=== PATIENT | female | born 1970 | race Caucasian/White ===

== ENCOUNTER 2021-07-15 08:07 | Outpatient (REF) | payer OTHER, SELFPAY ==
--- NOTE | ~2021-07-15 | MR_ITS ---
EXAMINATION: MR BRAIN WITHOUT AND WITH CONTRAST MR CERVICAL SPINE WITHOUT AND WITH CONTRAST CLINICAL INFORMATION: Abnormality of gait and mobility. Unspecified visual loss. COMPARISON: None TECHNIQUE: Multiplanar, multisequence imaging of the brain and cervical spine was performed before and after the intravenous administration of 9 mL of Gadavist. FINDINGS: BRAIN: No diffusion abnormalities are identified to suggest an acute infarct. The ventricles are normal in size. No mass effect or midline shift is seen. Minimal nonspecific subcentimeter foci of T2 hyperintense signal change noted in the cerebral white matter of both hemispheres. No extra-axial fluid collections are seen. The brainstem and cerebellum are normal. On postcontrast imaging, there is no abnormal parenchymal or leptomeningeal enhancement. The gradient refocused acquisition demonstrates no pathologic magnetic susceptibility artifact to indicate underlying acute or chronic blood products. The craniovertebral junction, marrow signal, and midline structures are normal. The major intracranial flow voids at the level of the [place] are preserved. The dural venous sinus flow voids are maintained. The mastoid air cells and paranasal sinuses are well aerated. CERVICAL SPINE: Vertebral Bodies And Paraspinal Soft Tissues: The marrow signal is mildly heterogeneous. Minimal endplate edematous changes present at various levels with infitepr-le-gsxqmy multilevel disc space narrowing. There are no compression fractures. Mild posterior subluxation is evident with endplate spurring at the C3-C4 and C4-C5 levels. There is a mild rightward curvature of the cervical spine. The paraspinal soft tissues appear normal. The vertebral artery flow-voids are normally maintained. The imaged lung apices are grossly clear. Cervicomedullary Junction And Visualized Posterior Fossa: The craniovertebral junction appears normal. No cord signal abnormality or syrinx is seen. No pathologic intradural enhancement identified. The epidural soft tissues are normal. Spinal Levels: C2-C3: No significant disc pathology. Patent central canal and foramina. C3-C4: Retrosubluxation and disc-osteophyte complex with afyritkb-gx-bmfsiu left foraminal narrowing. No central canal stenosis. C4-C5: Posterior subluxation and disc-osteophyte complex with severe left foraminal encroachment and moderate right foraminal narrowing. No central canal stenosis. C5-C6: Shallow disc bulge and endplate spurring without central canal stenosis. Severe left foraminal narrowing and moderate right foraminal encroachment. C6-C7: Disc-osteophyte complex without central canal stenosis. Mild left foraminal narrowing. C7-T1: Very mild disc bulge and small posterior annular fissure. No central canal stenosis or foraminal encroachment. MR/MR head/brain wo/w con IMPRESSION: BRAIN: Aside from minimal nonspecific white matter signal changes, no acute process. Otherwise, relatively normal MRI of the brain. No abnormal enhancement. CERVICAL SPINE: 1. Moderate multilevel disc space narrowing with shallow disc-osteophyte complexes. No cord signal abnormality or pathologic enhancement. 2. No central canal stenosis or focal disc protrusion. Xdiljgkc-um-lbtmud left foraminal narrowing at the C3-C4 level. Significant foraminal narrowing, worse on the left side at the C4-C5 and C5-C6 levels.
--- NOTE | ~2021-07-15 | MR_ITS ---
EXAMINATION: MR BRAIN WITHOUT AND WITH CONTRAST MR CERVICAL SPINE WITHOUT AND WITH CONTRAST CLINICAL INFORMATION: Abnormality of gait and mobility. Unspecified visual loss. COMPARISON: None TECHNIQUE: Multiplanar, multisequence imaging of the brain and cervical spine was performed before and after the intravenous administration of 9 mL of Gadavist. FINDINGS: BRAIN: No diffusion abnormalities are identified to suggest an acute infarct. The ventricles are normal in size. No mass effect or midline shift is seen. Minimal nonspecific subcentimeter foci of T2 hyperintense signal change noted in the cerebral white matter of both hemispheres. No extra-axial fluid collections are seen. The brainstem and cerebellum are normal. On postcontrast imaging, there is no abnormal parenchymal or leptomeningeal enhancement. The gradient refocused acquisition demonstrates no pathologic magnetic susceptibility artifact to indicate underlying acute or chronic blood products. The craniovertebral junction, marrow signal, and midline structures are normal. The major intracranial flow voids at the level of the [place] are preserved. The dural venous sinus flow voids are maintained. The mastoid air cells and paranasal sinuses are well aerated. CERVICAL SPINE: Vertebral Bodies And Paraspinal Soft Tissues: The marrow signal is mildly heterogeneous. Minimal endplate edematous changes present at various levels with fglobvrr-wi-tbtxdt multilevel disc space narrowing. There are no compression fractures. Mild posterior subluxation is evident with endplate spurring at the C3-C4 and C4-C5 levels. There is a mild rightward curvature of the cervical spine. The paraspinal soft tissues appear normal. The vertebral artery flow-voids are normally maintained. The imaged lung apices are grossly clear. Cervicomedullary Junction And Visualized Posterior Fossa: The craniovertebral junction appears normal. No cord signal abnormality or syrinx is seen. No pathologic intradural enhancement identified. The epidural soft tissues are normal. Spinal Levels: C2-C3: No significant disc pathology. Patent central canal and foramina. C3-C4: Retrosubluxation and disc-osteophyte complex with qapqgapo-ft-zbkaza left foraminal narrowing. No central canal stenosis. C4-C5: Posterior subluxation and disc-osteophyte complex with severe left foraminal encroachment and moderate right foraminal narrowing. No central canal stenosis. C5-C6: Shallow disc bulge and endplate spurring without central canal stenosis. Severe left foraminal narrowing and moderate right foraminal encroachment. C6-C7: Disc-osteophyte complex without central canal stenosis. Mild left foraminal narrowing. C7-T1: Very mild disc bulge and small posterior annular fissure. No central canal stenosis or foraminal encroachment. MR/MR cervical spine wo/w con IMPRESSION: BRAIN: Aside from minimal nonspecific white matter signal changes, no acute process. Otherwise, relatively normal MRI of the brain. No abnormal enhancement. CERVICAL SPINE: 1. Moderate multilevel disc space narrowing with shallow disc-osteophyte complexes. No cord signal abnormality or pathologic enhancement. 2. No central canal stenosis or focal disc protrusion. Dqwxelkj-ii-fqklhe left foraminal narrowing at the C3-C4 level. Significant foraminal narrowing, worse on the left side at the C4-C5 and C5-C6 levels.
== END 2021-07-15 08:08 | disposition home or self-care (01) ==
LOC: HO.MRI 08:07
PROVIDERS: Visit Provider Nurse Practitioner Family
DX: R26.9 Unspecified abnormalities of gait and mobility (principal); R51.9 Headache, unspecified; H54.7 Unspecified visual loss
CPT/HCPCS: 70553; 72156; A9585

== ENCOUNTER → 2021-07-22 07:48 | Outpatient (BNVA) | payer OTHER, SELFPAY | PROVIDERS: PCP Internal Medicine; Visit Provider Nurse Practitioner Family | DX: Z13.89 Encounter for screening for other disorder (principal) ==

== ENCOUNTER 2023-12-24 11:27 | Outpatient (AMB) | payer OTHER, SELFPAY ==
[2023-12-24 11:38] VITALS: BP 130/64; PULSE 65; O2SAT 97; BMI 42.0
--- NOTE | 2023-12-24 11:38 | HO.NEPHOV_ITS ---
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 She had no erythema or discoloration. She did not have any shortness of breath. She denies any chest pain, palpitation or syncope. She does not have any proximal nocturnal dyspnea or orthopnea. She underwent echocardiogram and stress test. She was given diuretics which she is not taking now. She tries to maintain low-sodium diet. She has no froth or foam in the urine. She is not known to have any liver disease, diagnosed obstructive sleep apnea or renal disease. She is not known to have any proteinuria. 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 Her levothyroxine dosage has been recently adjusted. She is not a diabetic. She is not on any calcium channel patrick. 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 [facility] Medical History (Updated 12/24/23 @ 13:20 by Júnior Santoyo MD) Cellulitis of labia Hypothyroidism Kidney stone Thyroid nodule Primary insomnia Chronic bilateral low back pain without sciatica Anxiety Vitamin D deficiency Fatty liver Elevated HDL Chronic thoracic spine pain Spondylosis of cervical region without myelopathy or radiculopathy Panic disorder Asthma IBS (irritable bowel syndrome) Fibromyalgia Osteoarthritis of joint of toe of left foot Moderate episode of recurrent major depressive disorder PTSD (post-traumatic stress disorder) Anemia Vaginal dryness Surgical History (Updated 12/24/23 @ 11:45 by Sona Hernandez MA) H/O section H/O tubal ligation History of carpal tunnel surgery History of cholecystectomy H/O: hysterectomy Family History Father HTN (hypertension) Kidney disease High cholesterol Daughter Sleep apnea Son Sleep apnea Mother Arthritis Sister Hypothyroid Schizophrenia Alcoholism Social History (Updated 12/24/23 @ 11:45 by Sona Hernandez MA) Alcohol intake: never Patient Tobacco Use Status: Never used Tobacco Review of Systems Const All systems reviewed & are unremarkable except as noted in HPI and below Physical Exam Vital Signs: Last Vital Signs Pulse 65 12/24/23 11:38 BP 130/64 12/24/23 11:38 Pulse Ox 97 12/24/23 11:38 Oxygen Delivery Method Room Air 12/24/23 11:38 BMI result Body Mass Index 42.0 Const General: comfortable and no acute distress Orientation/consciousness: patient oriented x3 HEENT Head: Yes normocephalic Mouth: Normal oral and palatal mucosa present Eyes EOM: EOMs intact bilaterally Neck Neck: Yes supple Resp Auscultation: clear to auscultation bilaterally Cardio Jugular venous distension: no JVD Rate: regular rate GI Palpation (GI): Soft to palpation Auscultation: normal bowel sounds Skin General skin exam: no rashes or lesions noted Neuro General: patient oriented x3 and moves all extremities Extrem General: Yes no pedal edema Results Reviewed Nephrology Results: No Data to Display Assessment & Plan Assessment & Plan (1) Edema: Code(s): R60.9 - Edema, unspecified Category: Medical Qualifiers: Edema type: unspecified Qualified Code(s): R60.9 - Edema, unspecified Plan Jenelle is not known to have any renal disease, liver disease or history of heart failure. Her echocardiogram showed normal right and left ventricular systolic function. She has no history of valvular abnormalities. She has no history of trauma proteinuria. Clinical examination today did not show any edema. I asked her not to take any diuretics unnecessarily. She does not take excessive nonsteroidal anti-inflammatories. She needs to cut back sodium in the diet and will benefit from weight loss. She also will benefit from a sleep study. I have ordered renal functions, urine protein creatinine ratio, liver functions including a serum albumin. If all these come back normal, then we need to consider whether some of her medications are contributing to the way she feels even though clinical examination is not supportive. Answered all questions. Follow-up appointment given. Orders: Orders Electrolytes Today R60.9 - Edema, unspecified Creatinine Today R60.9 - Edema, unspecified Blood Urea Nitrogen Today R60.9 - Edema, unspecified Alanine Aminotransferase Today R60.9 - Edema, unspecified Aspartate Amino Transferase Today R60.9 - Edema, unspecified Albumin Level Today R60.9 - Edema, unspecified Protein Creatinine Ratio, Ur Today R60.9 - Edema, unspecified Coding Level of Care Code New Pt Level 4 (96612) Diagnoses Edema, unspecified type R60.9 Edema type: unspecified
== END 2023-12-24 12:24 | disposition home or self-care (01) ==
PROVIDERS: PCP Internal Medicine; Visit Provider Internal Medicine Nephrology
DX: R60.9 Edema, unspecified (principal)
CPT/HCPCS: 99204

== ENCOUNTER → 2023-12-24 11:27 | Outpatient (BNVA) | payer OTHER, SELFPAY | PROVIDERS: PCP Internal Medicine; Visit Provider Internal Medicine Nephrology ==

== ENCOUNTER 2023-12-24 12:16 | Outpatient (REF) | payer OTHER, SELFPAY ==
[2023-12-24 13:55] LABS: Alanine Aminotransferase 21 U/L (0-31); Albumin Level 4.5 g/dL (3.5-5.0); Anion Gap 12 (12-20); Aspartate Amino Transferase 18 U/L (5-31); Blood Urea Nitrogen 11 mg/dL (9-16); Carbon Dioxide 28 mmol/L (22-29); Chloride 107 mmol/L (96-108); Estimated Glomerular Filt Rate > 60; Potassium 4.5 mmol/L (3.3-5.1); Sodium 142 mmol/L (135-145)
[2023-12-24 14:10] LABS: Creatinine Urine 78.96 mg/dL; Total Protein Urine Random < 7 mg/dL (<12)
== END 2023-12-24 12:17 | disposition home or self-care (01) ==
LOC: HO.HKASLDS 12:16
PROVIDERS: Visit Provider Internal Medicine Nephrology
DX: R60.9 Edema, unspecified (principal)
CPT/HCPCS: 36415; 80051; 82040; 82565; 82570; 84156; 84450; 84460; 84520; 99202

== ENCOUNTER 2024-02-02 15:52 | Outpatient (AMB) | payer OTHER, SELFPAY ==
--- NOTE | 2024-02-02 16:00 | HO.NEPHOV_ITS ---
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 She had no erythema or discoloration. She did not have any shortness of breath. She denies any chest pain, palpitation or syncope. She does not have any proximal nocturnal dyspnea or orthopnea. She underwent echocardiogram and stress test. She was given diuretics which she is not taking now. She tries to maintain low- sodium diet. She has no froth or foam in the urine. She is not known to have any liver disease, diagnosed obstructive sleep apnea or renal disease. She is not known to have any proteinuria. 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 Her levothyroxine dosage has been recently adjusted. She is not a diabetic. She is not on any calcium channel patrick. She recently had right low back pain and was found to have 2 mm right UV junction. Two days later she had TIA. She has been started on Aspirin. 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 [facility] Medical History (Updated 02/02/24 @ 16:14 by Júnior Santoyo MD) Cellulitis of labia Hypothyroidism Kidney stone Thyroid nodule Primary insomnia Chronic bilateral low back pain without sciatica Anxiety Vitamin D deficiency Fatty liver Elevated HDL Chronic thoracic spine pain Spondylosis of cervical region without myelopathy or radiculopathy Panic disorder Asthma IBS (irritable bowel syndrome) Fibromyalgia Osteoarthritis of joint of toe of left foot Moderate episode of recurrent major depressive disorder PTSD (post-traumatic stress disorder) Anemia Vaginal dryness Surgical History H/O section H/O tubal ligation History of carpal tunnel surgery History of cholecystectomy H/O: hysterectomy Family History Father HTN (hypertension) Kidney disease High cholesterol Daughter Sleep apnea Son Sleep apnea Mother Arthritis Sister Hypothyroid Schizophrenia Alcoholism Social History Alcohol intake: never Patient Tobacco Use Status: Never used Tobacco Review of Systems Const All systems reviewed & are unremarkable except as noted in HPI and below Physical Exam Const General: comfortable and no acute distress Orientation/consciousness: patient oriented x3 HEENT Head: Yes normocephalic Mouth: Normal oral and palatal mucosa present Eyes EOM: EOMs intact bilaterally Neck Neck: Yes supple Resp Auscultation: clear to auscultation bilaterally Cardio Jugular venous distension: no JVD Rate: regular rate GI Palpation (GI): Soft to palpation Auscultation: normal bowel sounds General: Yes no CVA tenderness Back/Spine/Pelvis Back: no CVA tenderness Skin General skin exam: no rashes or lesions noted Neuro General: patient oriented x3 and moves all extremities Results Reviewed Nephrology Results: Sodium 142 mmol/L (135-145) 12/24/23 Potassium 4.5 mmol/L (3.3-5.1) 12/24/23 Chloride 107 mmol/L (96-108) 12/24/23 Carbon Dioxide 28 mmol/L (22-29) 12/24/23 BUN 11 mg/dL (9-16) 12/24/23 Creatinine 0.70 mg/dL (0.5-1.4) 12/24/23 Urine Creatinine 78.96 mg/dL 12/24/23 Protein/Creatinin Ratio TNP 12/24/23 Assessment & Plan Assessment & Plan (1) Kidney stone: Code(s): N20.0 - Calculus of kidney Category: Medical Plan Jenelle is not known to have any renal disease, liver disease or history of heart failure. Her echocardiogram showed normal right and left ventricular systolic function. She has no history of valvular abnormalities. She has no history of proteinuria. Clinical examination today did not show any edema. I asked her not to take any diuretics unnecessarily. She does not take excessive nonsteroidal anti-inflammatories. She needs to cut back sodium in the diet and will benefit from weight loss. She also will benefit from a sleep study. Renal functions, urine protein creatinine ratio, liver functions including a serum albumin were normal. I ordered 24 hour urine for stone screen. I shall initiate her on HCTZ and or K citrate after the urine results.Answered all questions. Follow-up given Orders: Orders Sodium, 24Hr Urine Group 2 Months N20.0 - Calculus of kidney Calcium, 24 Hr Ur 2 Months N20.0 - Calculus of kidney Uric Acid, 24Hr Urine Group 2 Months N20.0 - Calculus of kidney Citric Acid 24hr Urine 2 Months N20.0 - Calculus of kidney Oxalate, 24 Hr 2 Months N20.0 - Calculus of kidney Uric Acid 2 Months N20.0 - Calculus of kidney Coding Level of Care Code Est Pt Level 4 (99170) Diagnoses Kidney stone N20.0
[2024-02-02 16:02] VITALS: BP 116/70; PULSE 69; O2SAT 95; BMI 42.0
== END 2024-02-02 16:24 | disposition home or self-care (01) ==
PROVIDERS: PCP Internal Medicine; Visit Provider Internal Medicine Nephrology
DX: N20.0 Calculus of kidney (principal)
CPT/HCPCS: 99214

== ENCOUNTER → 2024-02-02 15:52 | Outpatient (BNVA) | payer OTHER, SELFPAY | PROVIDERS: PCP Internal Medicine; Visit Provider Internal Medicine Nephrology | DX: N20.0 Calculus of kidney (principal); Z86.73 Personal history of transient ischemic attack (TIA), and cerebral infarction without residual deficits | CPT/HCPCS: 99212 ==

== ENCOUNTER 2024-05-24 15:51 | Outpatient (AMB) | payer OTHER, SELFPAY ==
--- NOTE | 2024-05-24 16:10 | HO.NEPHOV_ITS ---
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 She had no erythema or discoloration. She did not have any shortness of breath. She denies any chest pain, palpitation or syncope. She does not have any proximal nocturnal dyspnea or orthopnea. She underwent echocardiogram and stress test. She was given diuretics which she is not taking now. She tries to maintain low-sodium diet. She has no froth or foam in the urine. She is not known to have any liver disease, diagnosed obstructive sleep apnea or renal disease. She is not known to have any proteinuria. 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 Her levothyroxine dosage has been recently adjusted. She is not a diabetic. She is not on any calcium channel patrick. She recently had a 2 mm right UV junction. Two days later she had TIA. 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 [facility] Medical History (Updated 02/02/24 @ 16:14 by Júnior Santoyo MD) Cellulitis of labia Hypothyroidism Kidney stone Thyroid nodule Primary insomnia Chronic bilateral low back pain without sciatica Anxiety Vitamin D deficiency Fatty liver Elevated HDL Chronic thoracic spine pain Spondylosis of cervical region without myelopathy or radiculopathy Panic disorder Asthma IBS (irritable bowel syndrome) Fibromyalgia Osteoarthritis of joint of toe of left foot Moderate episode of recurrent major depressive disorder PTSD (post-traumatic stress disorder) Anemia Vaginal dryness Surgical History H/O section H/O tubal ligation History of carpal tunnel surgery History of cholecystectomy H/O: hysterectomy Family History Father HTN (hypertension) Kidney disease High cholesterol Daughter Sleep apnea Son Sleep apnea Mother Arthritis Sister Hypothyroid Schizophrenia Alcoholism Social History Alcohol intake: never Patient Tobacco Use Status: Never used Tobacco Review of Systems Const All systems reviewed & are unremarkable except as noted in HPI and below Physical Exam Vital Signs: Last Vital Signs Pulse 69 05/24/24 16:11 BP 120/70 05/24/24 16:11 Pulse Ox 95 05/24/24 16:11 Oxygen Delivery Method Room Air 05/24/24 16:11 BMI result Body Mass Index 39.5 Const General: comfortable and no acute distress Orientation/consciousness: patient oriented x3 HEENT Head: Yes normocephalic Mouth: Normal oral and palatal mucosa present Eyes EOM: EOMs intact bilaterally Neck Neck: Yes supple Resp Auscultation: clear to auscultation bilaterally Cardio Jugular venous distension: no JVD Rate: regular rate GI Palpation (GI): Soft to palpation Auscultation: normal bowel sounds General: Yes no CVA tenderness Back/Spine/Pelvis Back: no CVA tenderness Skin General skin exam: no rashes or lesions noted Neuro General: patient oriented x3 and moves all extremities Extrem General: Yes no pedal edema Results Reviewed Nephrology Results: Sodium 142 mmol/L (135-145) 12/24/23 Potassium 4.5 mmol/L (3.3-5.1) 12/24/23 Chloride 107 mmol/L (96-108) 12/24/23 Carbon Dioxide 28 mmol/L (22-29) 12/24/23 BUN 11 mg/dL (9-16) 12/24/23 Creatinine 0.70 mg/dL (0.5-1.4) 12/24/23 Urine Creatinine 78.96 mg/dL 12/24/23 Protein/Creatinin Ratio TNP 12/24/23 Assessment & Plan Assessment & Plan (1) Kidney stone: Code(s): N20.0 - Calculus of kidney Category: Medical Plan Jenelle is not known to have any renal disease, liver disease or history of heart failure. Her echocardiogram showed normal right and left ventricular systolic function. She has no history of valvular abnormalities. She has no history of proteinuria. Clinical examination today did not show any edema. I asked her not to take any diuretics unnecessarily. She does not take excessive nonsteroidal anti-inflammatories. She needs to cut back sodium in the diet and will benefit from weight loss. Renal functions, urine protein creatinine ratio, liver functions including a serum albumin were normal. Her 24 hour urine for stone screen is pending. She will need a renal USS In 6 months ( I shall arrange). I shall initiate her on HCTZ and or K citrate after the urine results.Answered all questions. Follow-up given Coding Level of Care Code Est Pt Level 4 (38775) Diagnoses Kidney stone N20.0
[2024-05-24 16:11] VITALS: BP 120/70; PULSE 69; O2SAT 95; BMI 39.5
--- OUTSIDE RECORDS SUMMARY | 2024-05-24 19:50 | XMS_ITS | Encounter Summary ---
Author Organization [facility] [place] [address] Care Team Providers Care Water Resource Specialist Name Role Phone Kevin Raymond MD Primary Care Provider [phone] Encounter Details Date Type Department Care Team (Late st Contact Info) Description 05/19/2024 Telephone Adult Medicine [address] [phone] Kaykay Starks, RN Social History Tobacco Use Types Packs/Day Years Used Date Smoking Tobacco: Former Smokeless Tobacco: Never Alcohol Use Standard Drinks/Week Comments Yes 0 (1 standard drink = 0.6 oz pur e alcohol) Comments Unknown Sex and Gender Information Value Date Recorded Sex Assigned at Not on file Legal Sex Female 4:15 AM EST Gender Identity Not on file Sexual Orientation Not on file documented as of this encounter Progress Notes * Kaykay Starsk RN - 05/19/2024 3:38 PM EST I left a message for the pt to call the office at and sent a my chart message. documented in this encounter Plan of Treatment Upcoming Encounters Date Type Department Care Team (Late st Contact Info) Description 06/08/2024 3:30 PM EDT Consult Nephrology [address], [place] [phone] Lonnie Mondragon MD [address] [facility] [address] [place] [address] 06/10/2024 4:40 PM EDT Office Visit Endocrinology [address] [phone] Radha Larson PA [address] [place] [address] documented as of this encounter Visit Diagnoses Not on filedocumented in this encounter Care Teams Water Resource Specialist Relationship Specialty Start Date End Date Kevin Raymond MD [address] [place] [id number] PCP - General Internal Medicine 02/02/20 documented as of this encounter
--- OUTSIDE RECORDS SUMMARY | 2024-05-24 19:50 | XMS_ITS | Clinical Summary ---
Author Organization [facility] [address] [facility] Address [address] [facility] [place] Phone Care Team Providers Care Corporate Event Planner Name Role Phone Kevin Raymond MD Primary Care Provider [phone] Allergies Active Allergy Reactions Criticality Noted Date Comments Hydromorphone Hcl Headache 10/17/2019 Medications conjugated estrogens (Premarin) vaginal cream Insert 0.5 g into the vagina. 022 Active fluticasone propionate (FLONASE) 50 mcg/actuation nasal spray Administer 2 sprays into each nostril 1 (one) time each day. 023 Active fluticasone-salm eterol (ADVAIR DISKUS) 250-50 mcg/dose diskus inhaler Inhale 1 puff by mouth 2 (two) times a day. 023 Active OLANZapine (ZyPREXA) 2.5 mg tablet Take 1 tablet (2.5 mg total) by mouth 1 (one) time each day. 023 Active ergocalciferol (VITAMIN D-2) 1,250 mcg (50,000 unit) capsule Take 1 capsule (50,000 Units total) by mouth 1 (one) time per week. 023 Active aspirin 81 mg EC tablet Take 1 tablet (81 mg total) by mouth 1 (one) time each day. 90 tablet 1 024 2024 Active Additional Information Patient taking differently:81 mg oralNightly, Reported on 02/25/2024 Ventolin HFA 90 mcg/actuation inhaler INHALE 2 PUFFS INTO THE LUNGS EVERY 4 HOURS NEEDED FOR COUGH OR WHEEZING. 54 each 1 024 Active gabapentin (NEURONTIN) 300 mg capsule Take 1 capsule (300 mg total) by mouth 2 (two) times a day. Active levothyroxine (SYNTHROID, LEVOTHROID) 100 mcg tablet TAKE 1 TABLET BY MOUTH EVERY DAY 90 tablet 024 Active rosuvastatin (CRESTOR) 5 mg tablet Take 1 tablet (5 mg total) by mouth 1 (one) time each day. 90 each 1 025 2024 Active DULoxetine (CYMBALTA) [address] capsule TAKE 1 CAPSULE BY MOUTH EVERY DAY 90 capsule 025 Active carisoprodoL (SOMA) 350 mg tabletIndication s:Spondylosis of cervical region without myelopathy or radiculopathy Take 1 tablet (350 mg total) by mouth 4 (four) times a day. Max Daily Amount: 1,400 mg 112 tablet 025 Active ALPRAZolam (XANAX) 0.5 mg tablet Take 1 tablet (0.5 mg total) by mouth 2 (two) times a day. Max Daily Amount: 1 mg 56 tablet 025 Active tirzepatide, weight loss, (Zepbound) 7.5 mg/0.5 mL injectionIndicat ions:Obesity (BMI 30-39.9) Inject 0.5 mL (7.5 mg total) under the skin every 7 (seven) days. 2 mL 1 025 Active predniSONE (DELTASONE) 20 mg tablet 3 tabs po x 3 days then 2 tabs po x 3 days then one tab po x 3 days 18 each 025 Active DULoxetine (CYMBALTA) [address] capsule Take 1 capsule (30 mg total) by mouth 1 (one) time each day. 023 2024 Discontinued ALPRAZolam (XANAX) 0.5 mg tablet Take 1 tablet (0.5 mg total) by mouth 2 (two) times a day. Max Daily Amount: 1 mg 56 tablet 025 2024 Discontinued(R eorder) carisoprodoL (SOMA) 350 mg tabletIndication s:Spondylosis of cervical region without myelopathy or radiculopathy Take 1 tablet (350 mg total) by mouth 4 (four) times a day. Max Daily Amount: 1,400 mg 112 tablet 025 2024 Discontinued(R eorder) tirzepatide, weight loss, (Zepbound) 5 mg/0.5 mL injectionIndicat ions:Obesity (BMI 30-39.9) Use 5 mg once weekly 2 mL 025 2024 Discontinued Active Problems Problem Noted Date Diagnosed Date Vaginal dryness 08/15/2021 Overview (05/08/2023): Last Assessment & Plan: Encouraged coconut oil for lubrication and positioning for comfort. Can consider vaginal E2 if not improved. 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 Elevated HDL 06/09/2018 Fatty liver 06/09/2018 Chronic thoracic spine pain 06/09/2018 Vitamin D deficiency 06/05/2018 Obesity (BMI 30-39.9) 05/28/2018 Chronic bilateral low back pain without sciatica 05/28/2018 Overview (05/08/2023): [facility] neuro 05/30/21 did not recommend surgery Anxiety 05/28/2018 Primary insomnia 05/28/2018 Thyroid nodule 05/28/2018 Kidney stone 07/01/2017 Overview (05/08/2023): 06/18/2017 US 3mm R sided kidney stone. Added automatically from request for surgery [id number]. Hypothyroidism 11/19/2014 Overview (05/08/2023): Angus's Disease. Cellulitis of labia 11/19/2014 Resolved Problems Problem Noted Date Diagnosed Date Resolved Date TIA (transient ischemic attack) 02/25/2024 02/26/2024 Encounters Date Type Department Care Team Description 05/19/2024 Telephone Adult Medicine [address] [phone] Kaykay Starks RN 05/16/2024 Telephone Adult [address] [phone] Ester Randhawa MA Prior Authorization (Carisoprodol 350mg) 04/21/2024 9:13 AM EST - 04/21/2024 11:59 PM EST Hospital Encounter [address] [phone] Right knee pain, unspecified chronicity; Leg cramp Discharge Disposition: Home or Self Care 04/08/2024 3:30 PM EST Office Visit Adult [address] [phone] Kevin Raymond MD Anxiety (Primary Dx); Hypothyroidism, unspecified type; Right knee pain, unspecified chronicity; Leg cramp; Fibromyalgia; History of transient ischemic attack (TIA); PTSD (post-traumatic stress disorder) 04/07/2024 Telephone Adult Medicine [address] [phone] Sofy Jerez MA Medication Problem 03/14/[address] [phone] Radha Larson PA PRIOR AUTHORIZATION 02/25/2024 11:20 AM EST - 02/26/2024 2:40 PM EST [facility] [address] [place] [phone] Kwaku Perez, Dallas Ortega MD Santoyo-Pachec o, Omar D, MD Rasul, Yar M, MD TIA (transient ischemic attack) (Primary Dx) Discharge Disposition: Home or Self Care 02/24/2024 Telephone Adult Medicine [address] [phone] Kevin Raymond MD Forms/questionnaires ([facility]) from Last 3 Months Immunizations Name Administration Dates Next Due Influenza Quadravalent, MDCK , 0.5ml, preservative free (Flucelvax) 6mo and older 12/12/2021 Influenza trivalent, with pr eservative (Fluzone; Afluria) 6mo and older 12/25/2018,01/01/2018 Pneumococcal polysaccharide 23 valent (Pneumovax 23) 2yo and older 06/15/2020 Tdap Tetanus diptheria acell ular pertussis (Boostrix; Adacel) 7yo and older 09/25/2021 Surgical History Surgery Date Site/Laterality Comments CHOLECYSTECTOMY PROCEDURE: HISTORICAL CHOLECYSTECTOMY TUBAL LIGATION PROCEDURE: HISTORICAL TUBAL LIGATION CARPAL TUNNEL RELEASE PROCEDURE: HISTORICAL CARPAL TUNNEL REL SECTION PROCEDURE: HISTORICAL DELIVERY TONSILLECTOMY PROCEDURE: HISTORICAL TONSILLECTOMY COLONOSCOPY 01/14/2021 PROCEDURE: HISTORICAL COLONOSCOPY; COMMENT: Dr. Hsieh -internal hemorrhoids, otherwise unremarkable. Repeat 5 years. ESOPHAGOGASTRODUODENOSCOPY 01/14/2021 PROCEDURE: NV EGD TRANSORAL BIOPSY SINGLE/MULTIPLE; COMMENT: Dr. Hsieh -antral gastritis, otherwise unremarkable. Gastric biopsy shows evidence of reactive gastropathy. No H. pylori infection. Duodenal biopsy negative for celiac disease. 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 HYSTERECTOMY 2008 PROCEDURE: HISTORICAL TOTAL HYSTERECTOMY WITH BSO; COMMENT: heavy bleeding, anemia, cysts APPENDECTOMY PROCEDURE: HISTORICAL APPENDECTOMY Medical History Medical History Date Comments Asthma 12/17/2018 DX:Asthma Cellulitis of labia 11/19/2014 DX:Celluliti s of labia Chronic bilateral low back p ain without sciatica 05/28/2018 DX:Chronic bilateral low homero k pain without sciatica; COMMENT: [facility] neuro 05/30/21 did not recommend surgery Chronic thoracic spine pain 06/09/2018 DX:C hronic thoracic spine pain Fibromyalgia 03/22/2020 DX:Fibromyalgia Obesity (BMI 30-39.9) 05/28/2018 DX:Obesity (BMI 30-39.9) Osteoarthritis of joint of t oe of left foot 09/25/2020 DX:Osteoarthritis of joint o f toe of left foot Panic disorder 11/24/2018 DX:Panic disorde r Primary insomnia 05/28/2018 DX:Primary inso mnia PTSD (post-traumatic stress disorder) 12/13/2020 DX:PTSD (post-traumatic stress disorder) Spondylosis of cervical max on without myelopathy or radiculopathy 06/22/2018 DX:Spondylosis of cervical region without myelopathy or radiculopathy; COMMENT: DDD mild to moderate loss of disc height throughout cervical spine, slight degenerative retrolisthesis of C4-5. Thyroid nodule 05/28/2018 DX:Thyroid nodul e Vitamin D deficiency 06/05/2018 DX:Vitamin D deficiency Hypothyroidism 11/19/2014 DX:Hypothyroidis m; COMMENT: Angus's Disease. Moderate episode of recurren t major depressive disorder (CMS/HCC) 12/13/2020 DX:Moderate episode of r ecurrent major depressive disorder (HCC) IBS (irritable bowel syndrome) 04/01/2019 D X:IBS (irritable bowel syndrome); COMMENT: w/ constipation, 04/03/2015 Family History Medical History Relation Name Comments Breast cancer Aunt 1 mat x 2 - 50's Breast cancer Aunt 2 mat - 60's Ovarian cancer Aunt 2 mat Prostate cancer Brother 1 Colon polyps Brother 2 8 polyps Prostate cancer Brother 2 Kidney cancer Daughter Heart attack Father Pancreatic cancer Father's side Arthritis Mother Colon cancer Uncle mat 60's Relation Name Status Comments Aunt 1 mat Alive Aunt 2 mat Brother 1 Alive prostate cancer Brother 2 Alive Daughter Alive Father (Age 69) mi cholest htn Father's side Alive Mother Alive Sister 1 Alive hypothyroid htn Sister 2 Alive hypothyroid Uncle mat Alive Social History Tobacco Use Types Packs/Day Years Used Date Smoking Tobacco: Former Smokeless Tobacco: Never Tobacco Cessation:Counseling Given: Not Answered Alcohol Use Standard Drinks/Week Comments Yes 0 (1 standard drink = 0.6 oz pur e alcohol) Comments Unknown Sex and Gender Information Value Date Recorded Sex Assigned at Not on file Legal Sex Female 4:15 AM EST Gender Identity Not on file Sexual Orientation Not on file Obstetrics History Last Filed Vital Signs Vital Sign Reading Time Taken Comments Blood Pressure 104/64 04/08/2024 3:23 PM EST Pulse 84 04/08/2024 3:23 PM EST Temperature 35.9 ??C (96.6 ??F) 04/08/2024 3:23 PM ES T Respiratory Rate 18 04/08/2024 3:23 PM EST Oxygen Saturation 97% 04/08/2024 3:23 PM EST Inhaled Oxygen Concentration - - Weight 105 kg (231 lb 8 oz) 04/08/2024 3:[address] Height 160 cm (5' 3 ) 04/08/2024 3:23 PM EST Body Mass Index 41.01 04/08/2024 3:23 PM EST Plan of Treatment Upcoming Encounters Date Type Department Care Team (Late st Contact Info) Description 06/08/2024 3:30 PM EDT Consult Nephrology - [address] [phone] Lonnie Mondragon MD [address] [facility] [address] [place] [phone] 06/10/2024 4:40 PM EDT Office Visit Endocrinology - [address] [phone] Radha Larson PA [address] [place], [place] Health Maintenance Due Date Last Done Comments Hepatitis B Vaccines (1 of 3 - 19+ 3-dose series) 1987 Zoster Vaccines (1 of 2) 2018 HIV Screening 04/23/2019 Social Influencers of Health Screening 04/23/2019 Pneumococcal Vaccine: 50+ Years (2 of 2 - PCV) 06/15/2021 06/15/2020 Pneumococcal Vaccine: Pediatrics (0 to 5 Years) and At-Risk Patients (6 to 64 Years) (2 of 2 - PCV) 06/15/2021 06/15/2020 COVID-19 Vaccine (3 - 2023- season) 2023 2020, 04/05/2020 Influenza Vaccine (#1) 2023 , 12/25/2018, 01/01/2018 Depression Screening 02/04/2024 02/03/2023 Breast Cancer Screening 07/08/2024 07/09/19 24, 04/25/2022, 01/12/2021, Additional history exists Colorectal Cancer Screening: Colonoscopy 01/14/2026 01/14/2021 Cholesterol Screening (Lipid Panel) 03/12/2028 03/12/2023 DTaP,Tdap,and Td Vaccines (2 - Td or Tdap) 09/26/2031 09/25/2021 Hepatitis C Screening Addressed 03/06/2022 Overri dden with the intention of not completing the topic HIB Vaccines Aged Out No longer eligi ble based on patient's age to complete this topic HPV Vaccines Aged Out No longer eligi ble based on patient's age to complete this topic Hepatitis A Vaccines Aged Out No long er eligible based on patient's age to complete this topic IPV Vaccines Aged Out No longer eligi ble based on patient's age to complete this topic MMR Vaccines Aged Out No longer eligi ble based on patient's age to complete this topic Meningococcal ACWY Vaccine Aged Out N o longer eligible based on patient's age to complete this topic Meningococcal B Vacine Aged Out No lo nger eligible based on patient's age to complete this topic RSV Immunization Patients Under 20 months Aged Out No longer eligible based on patient's age to complete this topic Varicella Vaccines Aged Out No longer eligible based on patient's age to complete this topic Procedures Procedure Name Priority Date/Time Associated Diagnosis Comments XR KNEE 4+ VIEWS RIGHT Routine 9:32 AM EST Right knee pain, unspecified chronicity Leg cramp BENZODIAZEPINE, QUANTITATIVE, URINE Routine 04/07/2024 11:25 AM EST Encounter for long-term (current) use of high-risk medication THC, URINE, CONFIRMATION Routine 04/07/2024 11:25 AM EST Encounter for long-term (current) use of high-risk medication DRUG ABUSE SCREEN EXPANDED WITH REFLEX CONFIRMATION, URINE Routine 04/07/2024 11:25 AM EST Encounter for long-term (current) use of high-risk medication CBC WITH AUTO DIFFERENTIAL Routine 02/26/2024 5:27 AM EST CBC AND DIFFERENTIAL Routine 02/26/2024 5:27 AM EST MAGNESIUM Routine 02/26/2024 5:27 AM EST BASIC METABOLIC PANEL Routine 02/26/2024 5:27 AM EST MR BRAIN WO CONTRAST Routine 02/25/2024 6:07 PM EST ECG 12-LEAD STAT 02/25/2024 1:23 PM EST XR CHEST 1 VIEW STAT 02/25/2024 12:15 PM EST CBC WITH AUTO DIFFERENTIAL STAT 02/25/2024 12:08 PM EST ACTIVATED PARTIAL THROMBOPLASTIN TIME STAT 02/25/2024 12:08 PM EST PROTHROMBIN TIME WITH INR STAT 02/25/2024 12:08 PM EST BASIC METABOLIC PANEL STAT 02/25/2024 12:08 PM EST CBC AND DIFFERENTIAL STAT 02/25/2024 12:08 PM EST POCT GLUCOSE BLOOD Routine 02/25/2024 12 :[address] ANGIO HEAD/NECK STROKE WO AND/OR W CONTRAST STAT 02/25/2024 11:[address] HEAD STROKE WO CONTRAST STAT 02/25/2024 11:29 AM EST ECG ANNOTATED 02/25/2024 ECG OUTSIDE 02/25/2024 SCREENING MAMMOGRAPHY BI 2-VIEW BREAST INC CAD Routine 07/09/2023 4:13 PM EDT Encounter for screening mammogram for malignant neoplasm of breast from Last 3 Months or Most Recently Relevant to Health Maintenance Results * XR Knee 4+ Views Right (04/21/2024 9:32 AM EST) Anatomical Region Laterality Modality Lower Extremities, Knee Right [facility] 04/21/2024 9:34 AM EST Impressions 04/21/2024 9:36 AM EST Minimal degenerative changes. -------- FINAL REPORT -------- Dictated By: Ranjith Lynn Dictated Date: 04/21/2024 09:34 ET Assigned Physician: Ranjith Lynn Reviewed and Electronically Signed By: Ranjith Lynn Signed Date: 04/21/2024 09:36 ET Workstation ID: [id number] Transcribed By: Self Edit Transcribed Date: 04/21/2024 09:35 ET Narrative 04/21/2024 9:36 AM EST XR KNEE 4+ VIEWS RIGHT Reason: knee pain Comparison: None FINDINGS: No fracture. ??Tiny tricompartmental osteophytes. ??Mild joint space narrowing medial femorotibial compartments. ??Normal alignment. ??No suprapatellar joint effusion. Procedure Note Ranjith Lynn MD - 04/21/2024 XR KNEE 4+ VIEWS RIGHT Reason: knee pain Comparison: None FINDINGS: No fracture. Tiny tricompartmental osteophytes. Mild joint spacenarrowing medial femorotibial compartments. Normal alignment. Nosuprapatellar joint effusion. IMPRESSION: Minimal degenerative changes. -------- FINAL REPORT -------- Dictated By: Ranjith Lynn Dictated Date: 04/21/2024 09:34 ET Assigned Physician: Ranjith Lynn Reviewed and Electronically Signed By: Ranjith Lynn Signed Date: 04/21/2024 09:36 ET Workstation ID: [id number] Transcribed By: Self Edit Transcribed Date: 04/21/2024 09:35 ET us Kevin Raymond MD IMG XR PROCEDURES Final Result * (ABNORMAL) Drug abuse screen expanded with reflex confirmation, urine (04/07/2024 11:25 AM EST) Amphetamine Screen, Ur Negative Negative LAB CHEMISTRY METHOD 5 7:[address] [facility] Comment:Certain OTC medicati ons containing ephedrine, phenylephrine, pseudoephedrine and phenylpropanolamine can cause false positive results. Barbiturate Screen, Ur Negative Negative LAB CHEMISTRY METHOD 5 7:[address] [facility] Benzodiazepine Screen, Ur Positive(A ) Negative LAB CHEMISTRY METHOD 5 7:[address] [facility] Cocaine Screen, Ur Negative Negative LAB CHEMISTRY METHOD 5 7:[address] [facility] Opiate Screen, Ur Negative Negative LAB CHEMISTRY METHOD 5 7:[address] [facility] Cannabinoid (THC) Screen, Ur Positive(A ) Negative LAB CHEMISTRY METHOD 5 7:[address] [facility] Comment:Specimens from patie nts taking pantoprazole sodium (Protonix) have been shown to produce false positive results. Fentanyl, Ur Negative Negative LAB CHEMISTRY METHOD 5 7:[address] [facility] Oxycodone Screen, Ur Negative Negative LAB CHEMISTRY METHOD 5 7:32 PM EST [facility] Urine Urine specimen obtained by clean catch procedure / Unknown Non-blood Collection / Unknown 04/07/2024 11:25 AM EST 04/07/2024 11:25 AM EST [facility]ative [facility] - 04/07/2024 7:32 PM EST Assay cutoffs: Amphetamines ? 1000 ng/mL Barbiturates ?200 ng/mL Benzodiazepines ?? 200 ng/mL Cocaine ? 300 ng/mL Fentanyl ?1 ng/mL Opiates ? 300 ng/mL Oxycodone ? 100 ng/mL THC ?50 ng/mL Semi-quantitative assay for screening purposes only. Unconfirmed screening result should not be used for non-medical purposes. *POSITIVE RESULTS ARE AUTOMATICALLY SENT FOR ALTERNATE METHOD CONFIRMATION* us Kevin Raymond MD LAB URINE ORDERABLES Final Resu lt [facility] [address] [place] [address], * THC, urine, confirmation (04/07/2024 11:25 AM EST) Tetrahydrocannabinoid (THC) 95 ng/mL 04/12/2024 10:04 AM EST [facility] Tetrahydrocannabinoid (THC)/Creatinine Ratio 104 5 10:04 AM EST [facility] Creatinine 91 20 - 250 mg/dL 04/12/2024 10:04 AM EST [facility] Adulterants Negative 04/12/2024 10:04 AM EST [facility] Comment: ? The urine THC/creatinine ratio is the best ? monitor to determine the possibility of continued drug ? usage. ??With abstinence, the ratio should decrease ? within one week by a factor of two or more. ? Confirmation (GC/MS) Decision Limit ?THC ([id number]) ? 3 ng/mL ??Adulterant Decision Limit: ? General Oxidants ? 200 ug/mL ?The adulterant assay tests for General Oxidants, ??including Chromates and Nitrites. ??Adulterants are ??substances either ingested or added directly to a ??urine specimen to prevent the detection of drug use. If applicable, any drug confirmation testing reported here was developed and the performance characteristics determined by [facility]. This confirmation testing has not been cleared or approved by the FDA. The laboratory is regulated under CLIA as qualified to perform high-complexity testing. This test is used for patient testing purposes. It should not be regarded as investigational or for research. Test performed at [facility], [address] , [place], [place] ??[address] ? [phone] Laura Huitron MD, PhD - Die Cleaner Urine Urine specimen obtained by clean catch procedure / Unknown Non-blood Collection / Unknown 04/07/2024 11:25 AM EST 04/07/2024 7:32 PM EST us Kevin Raymond MD LAB URINE ORDERABLES Final Resu lt [facility] [address] [place] [address] * Benzodiazepine, quantitative, urine (04/07/2024 11:25 AM EST) Alprazolam Confirm, Urine 173 ng/mL 04/12/2024 10:04 AM EST [facility] Clonazepam Confirm, Urine Negative ng/mL 04/12/2024 10:04 AM EST [facility] Flurazepam Confirm, Urine Negative ng/mL 04/12/2024 10:04 AM EST [facility] Lorazepam Confirm, Urine Negative ng/mL 04/12/2024 10:04 AM EST [facility] Nordiazepam Confirm, Urine Negative ng/mL 04/12/2024 10:04 AM EST [facility] Oxazepam Confirm, Urine Negative ng/mL 04/12/2024 10:04 AM EST [facility] Temazepam Confirm, Urine Negative ng/mL 04/12/2024 10:04 AM EST [facility] Creatinine 92 20 - 250 mg/dL 04/12/2024 10:04 AM EST [facility] Adulterants Negative 04/12/2024 10:04 AM REPLACED BY [facility] Comment: ? Confirmation (LC/MS/MS) Decision Limits ?Alprazolam ??(as alpha-hydroxyalprazolam) ?? 20 ng/mL ??Clonazepam ??(as 7-aminoclonazepam) ? 40 ng/mL ??Flurazepam ??(as 2-hydroxyethylflurazepam) ??40 ng/mL ?Lorazepam ?40 ng/mL ??Nordiazepam ?40 ng/mL ??Oxazepam ? 40 ng/mL ?Temazepam ?40 ng/mL ?Adulterant Decision Limit: ? General Oxidants ? 200 ug/mL ?The adulterant assay tests for General Oxidants, ??including Chromates and Nitrites. ??Adulterants are ??substances either ingested or added directly to a ??urine specimen to prevent the detection of drug use. If applicable, any drug confirmation testing reported here was developed and the performance characteristics determined by [facility]. This confirmation testing has not been cleared or approved by the FDA. The laboratory is regulated under CLIA as qualified to perform high-complexity testing. This test is used for patient testing purposes. It should not be regarded as investigational or for research. Test performed at [facility], [address], [place], [place] ??[address] ? [phone] Laura Huitron MD, PhD - Die Cleaner Urine Urine specimen obtained by clean catch procedure / Unknown Non-blood Collection / Unknown 04/07/2024 11:25 AM EST 04/07/2024 7:32 PM EST us Kevin Raymond MD LAB URINE ORDERABLES Final Resu lt [facility] [address] [place] [address] * (ABNORMAL) CBC auto differential (02/26/2024 5:27 AM EST) Only the most recent of2 resultswithin the time period is included. WBC 6.4 4.8 - 10.8 K/mcL LAB HEMETOLOGY METHOD 02/26/2024 6:[address] [facility] RBC 4.50 3.80 - 4.80 M[facility] LAB HEMETOLOGY METHOD 02/26/2024 6:[address] [facility] Hemoglobin 13.2 11.5 - 16.0 g/dL LAB HEMETOLOGY METHOD 02/26/2024 6:[address] [facility] Hematocrit 40.6 35.0 - 47.0 % LAB HEMETOLOGY METHOD 02/26/2024 6:[address] [facility] MCV 90.0 79.0 - 98.0 FL LAB HEMETOLOGY METHOD 02/26/2024 6:[address] [facility] MCH 29.3 27.0 - 32.0 pcg LAB HEMETOLOGY METHOD 02/26/2024 6:[address] [facility] MCHC 32.5 32.0 - 37.0 g/dL LAB HEMETOLOGY METHOD 02/26/2024 6:[address] [facility] RDW 14.6 11.0 - 15.0 % LAB HEMETOLOGY METHOD 02/26/2024 6:[address] [facility] Platelets 412(H) 130 - 400 K/mcL LAB HEMETOLOGY METHOD 02/26/2024 6:[address] [facility] MPV 9.1 7.0 - 11.0 FL LAB HEMETOLOGY METHOD 02/26/2024 6:[address] [facility] NRBC 0.0 <1.0 % LAB HEMETOLOGY METHOD 02/26/2024 6:[address] [facility] NRBC Absolute 0.00 <0.10 K/mcL LAB HEMETOLOGY METHOD 02/26/2024 6:[address] [facility] Neutrophils Relative 56.7 % LAB HEMETOLOGY METHOD 02/26/2024 6:[address] [facility] Lymphocytes Relative 33.0 % LAB HEMETOLOGY METHOD 02/26/2024 6:[address] [facility] Monocytes Relative 6.7 % LAB HEMETOLOGY METHOD 02/26/2024 6:[address] [facility] Eosinophils Relative 2.8 % LAB HEMETOLOGY METHOD 02/26/2024 6:[address] [facility] Basophils Relative 0.5 % LAB HEMETOLOGY METHOD 02/26/2024 6:[address] [facility] Immature Granulocytes Relative 0.3 % LAB HEMETOLOGY METHOD 02/26/2024 6:[address] [facility] Neutrophils Absolute 3.64 1.50 - 7.00 K/mcL LAB HEMETOLOGY METHOD 02/26/2024 6:[address] [facility] Lymphocytes Absolute 2.12 1.00 - 5.00 K/mcL LAB HEMETOLOGY METHOD 02/26/2024 6:[address] [facility] Monocytes Absolute 0.43 0.20 - 1.00 K/mcL LAB HEMETOLOGY METHOD 02/26/2024 6:37 AM EST [facility] Eosinophils Absolute 0.18 0.00 - 0.50 [facility] HEMETOLOGY METHOD 02/26/2024 6:37 AM EST [facility] Basophils Absolute 0.03 0.00 - 0.20 [facility] HEMETOLOGY METHOD 02/26/2024 6:37 AM EST [facility] Immature Granulocytes Absolute 0.02 0.00 - 0.03 [facility] HEMETOLOGY METHOD 02/26/2024 6:37 AM EST [facility] Blood Venous blood specimen / Unknown Venipuncture / Unknown 02/26/2024 5:27 AM EST 02/26/2024 6:15 AM EST us Dallas Brar MD LAB BLOOD ORDERABLES Final Re sult Performing Organization Address [facility]/ZIP Co de Phone Number [facility] [address] [place] [address], [place] [phone] * Magnesium (02/26/2024 5:27 AM EST) [facility] Magnesium 2.3 1.9 - 2.6 mg/dL LAB CHEMISTRY METHOD 02/26/2024 6:56 AM EST [facility] Blood Venous blood specimen / Unknown Venipuncture / Unknown 02/26/2024 5:27 AM EST 02/26/2024 6:15 AM EST us Dallas Brar MD LAB BLOOD ORDERABLES Final Re sult Performing Organization Address [facility]/ZIP Co de Phone Number [facility] [address] [place] [address], [place] [phone] * Basic metabolic panel (02/26/2024 5:27 AM EST) Only the most recent of2 resultswithin the time period is included. Sodium 140 133 - 145 mmol/L LAB CHEMISTRY METHOD 02/26/2024 6:[address] [facility] Potassium 4.0 3.5 - 5.5 mmol/L LAB CHEMISTRY METHOD 02/26/2024 6:[address] [facility] Chloride 107 96 - 110 mmol/L LAB CHEMISTRY METHOD 02/26/2024 6:[address] [facility] CO2 26 21 - 32 mmol/L LAB CHEMISTRY METHOD 02/26/2024 6:[address] [facility] Anion Gap 7 3 - 11 LAB CHEMISTRY METHOD 02/26/2024 6:[address] [facility] Glucose 86 70 - 100 mg/dL LAB CHEMISTRY METHOD 02/26/2024 6:[address] [facility] BUN 10 5 - 25 mg/dL LAB CHEMISTRY METHOD 02/26/2024 6:[address] [facility] Creatinine 0.63 0.50 - 1.10 mg/dL LAB CHEMISTRY METHOD 02/26/2024 6:[address] [facility] eGFR 105 >=60 mL/min/1. 73m2 LAB CHEMISTRY METHOD 02/26/2024 6:[address] [facility] Comment:Calculation based on the??Chronic Kidney Disease Epidemiology Collaboration (CKD-EPI) equation refit??without adjustment for race. BUN/Creatinine Ratio 15.9 LAB CHEMISTRY METHOD 02/26/2024 6:[address] [facility] Calcium 9.8 8.5 - 10.5 mg/dL LAB CHEMISTRY METHOD 02/26/2024 6:[address] [facility] Blood Venous blood specimen / Unknown Venipuncture / Unknown 02/26/2024 5:27 AM EST 02/26/2024 6:15 AM EST us Dallas Brar MD LAB BLOOD ORDERABLES Final Re sult [facility] [address] [place] [address], [place] [phone] * MR Brain wo Contrast (02/25/2024 6:07 PM EST) Anatomical Region Laterality Modality Head and Neck Magnetic Resonan ce 02/25/2024 6:47 PM EST Impressions 02/25/2024 6:47 PM EST Unremarkable brain MRI. This document has been electronically signed by: Cindy Pinzon MD on 02/25/2024 18:47:21 Narrative 02/25/2024 6:47 PM EST MR Brain without gadolinium Comparison: None Findings: No restricted diffusion. No intracranial mass or hemorrhage. No midline shift. No hydrocephalus. Vascular flow voids are intact. Orbital contents are unremarkable. The sinuses and mastoid air cells are clear. No focal bone lesion. Procedure Note Cindy Pinzon MD - 02/25/2024 MR Brain without gadolinium Comparison: None Findings: No restricted diffusion. No intracranial mass or hemorrhage. No midline shift. No hydrocephalus. Vascular flow voids are intact. Orbital contents are unremarkable. The sinuses and mastoid air cells are clear. No focal bone lesion. IMPRESSION: Unremarkable brain MRI. This document has been electronically signed by: Cindy Pinzon MD on 02/25/2024 18:47:21 [place] [facility]ED[place] Final Result * ECG 12 lead (02/25/2024 1:23 PM EST) Ventricular Rate ECG 60 BPM GEMUSE Atrial Rate 60 BPM GEMUSE P-R Interval 156 ms GEMUSE QRS Duration 86 ms GEMUSE Q-T Interval 448 ms GEMUSE QTc 448 ms GEMUSE P Wave [place] 6 degrees GEMUSE R [place] 0 degrees GEMUSE T [place] 34 degrees GEMUSE ECG Interpretation Normal sinus rhythm Nonspecific T wave abnormality Abnormal ECG When compared with ECG of 14-JAN-2024 07:03, Nonspecific T wave abnormality, worse in Anterolateral leads Confirmed by MD Ranulfo, Converse ([id number]) on 02/26/2024 7:03:32 AM GEMUSE 02/25/2024 1:23 PM EST 02/26/2024 7:03 AM EST us Kwaku Perez DO ECG ORDERABLES Final Result GEMUSE * XR Chest 1 View (02/25/2024 12:15 PM EST) Anatomical Region Laterality Modality Body Radiographic Miladys ging 02/25/2024 12:2 9 PM EST Impressions 02/25/2024 12:30 PM EST FINDINGS/IMPRESSION: Lungs are clear. ??No pleural effusion or pneumothorax. ??Cardiac silhouette and bones are within normal limits. ??Left axillary clips noted. -------- FINAL REPORT -------- Dictated By: SELVIN GRIMALDO Dictated Date: 02/25/2024 12:29 ET Assigned Physician: SELVIN GRIMALDO Reviewed and Electronically Signed By: SELVIN GRIMALDO Signed Date: 02/25/2024 12:30 ET Workstation ID: [id number] Transcribed By: Self Edit Transcribed Date: 02/25/2024 12:29 ET Narrative 02/25/2024 12:30 PM EST XR CHEST 1 VIEW INDICATION: ??Stroke, neurologic deficit, transient ischemic attack TECHNIQUE: XR CHEST 1 VIEW COMPARISON: 01/14/2024 Procedure Note Selvin Grimaldo MD - 02/25/2024 XR CHEST 1 VIEW INDICATION: Stroke, neurologic deficit, transient ischemic attack TECHNIQUE: XR CHEST 1 VIEW COMPARISON: 01/14/2024 IMPRESSION: FINDINGS/IMPRESSION: Lungs are clear. No pleural effusion orpneumothorax. Cardiac silhouette and bones are within normal limits.Left axillary clips noted. -------- FINAL REPORT -------- Dictated By: SELVIN GRIMALDO Dictated Date: 02/25/2024 12:29 ET Assigned Physician: SELVIN GRIMALDO Reviewed and Electronically Signed By: SELVIN GRIMALDO Signed Date: 02/25/2024 12:30 ET Workstation ID: [id number] Transcribed By: Self Edit Transcribed Date: 02/25/2024 12:29 ET us Kwaku Perez DO IMG XR PROCEDURES Final Result * Activated partial thromboplastin time (02/25/2024 12:08 PM EST) [facility] aPTT 37.0 24.1 - 39.3 sec LAB COAGULATION METHOD 02/25/2024 12:59 PM EST [facility] Blood Venous blood specimen / Unknown Venipuncture / Unknown 02/25/2024 12:08 PM EST 02/25/2024 12:48 PM EST us Kwaku Perez DO LAB BLOOD ORDERABLES Final Res ult [facility] [address] [place] [address], [place] [phone] * Prothrombin time with INR (02/25/2024 12:08 PM EST) [facility] Protime 11.6 10.6 - 13.9 sec LAB COAGULATION METHOD 02/25/2024 12:59 PM EST [facility] INR 0.9 LAB COAGULATION METHOD 02/25/2024 12:59 PM EST [facility] Blood Venous blood specimen / Unknown Venipuncture / Unknown 02/25/2024 12:08 PM EST 02/25/2024 12:48 PM EST Kwaku Perez DO LAB BLOOD ORDERABLES Final Res ult [facility] [address] [place] [address], [place] [phone] * POCT Glucose, blood (02/25/2024 12:06 PM EST) [facility] Glucose POCT 71 70 - 100 mg/dL 02/25/2024 12:07 PM EST [facility] Blood Capillary blood specimen / Unknown 02/25/2024 12:06 PM EST 02/25/2024 12:08 PM EST us Kwaku Perez DO LAB POINT OF CARE TE ST DOCKED DEVICE UNSOLICITED RESULTS Final Result [facility] [address] [place] [address], [place] [phone] * CT Head Stroke wo Contrast (02/25/2024 11:29 AM EST) Anatomical Region Laterality Modality Head and Neck Computed Tomogra phy 02/25/2024 11:3 6 AM EST Impressions 02/25/2024 11:43 AM EST No acute hemorrhage. ??Brain is normal for age. Electronic message regarding this finding was communicated to Dr. Raymond at time of signing. -------- FINAL REPORT -------- Dictated By: Raz Willis Dictated Date: 02/25/2024 11:36 ET Assigned Physician: Raz Willis Reviewed and Electronically Signed By: Raz Willis Signed Date: 02/25/2024 11:43 ET Workstation ID: [id number] Transcribed By: Self Edit Transcribed Date: 02/25/2024 11:36 ET Narrative 02/25/2024 11:43 AM EST EXAM: ??CT brain without contrast. HISTORY: ??Right-sided weakness. ??Stroke alert. COMPARISON: ??CT brain December 2023 and MRI brain December 2023. TECHNIQUE: ??Volumetric MDCT imaging of the brain was done from the skull base to the vertex with multiplanar reformatted reconstructions. ? DOSE: CTDIvol: 61.2/44.1mGy. ??Total exam DLP: 808.9mGy-cm FINDINGS: ??No intracranial hemorrhage is visualized. ??. The brain appears within normal limits. ??No volume loss is noted. ??The ventricles are normal in size. ??Midbrain and cerebellum appear normal. ??7 mm calcified extra-axial mass is noted at the posterior vertex near the left falx that likely represents a stable small meningioma. ??No adjacent edema. Surrounding soft tissues appear normal. ??Limited views of the orbits appear within normal limits. Calvarium is intact. ??No acute deformity. ??Mastoid air cells are patent. ??Paranasal sinuses are patent. Procedure Note Raz Willis MD - 02/25/2024 EXAM: CT brain without contrast. HISTORY: Right-sided weakness. Stroke alert. COMPARISON: CT brain December 2023 and MRI brain December 2023. TECHNIQUE: Volumetric MDCT imaging of the brain was done from the skullbase to the vertex with multiplanar reformatted reconstructions. ? DOSE: CTDIvol: 61.2/44.1mGy. Total exam DLP: 808.9mGy-cm FINDINGS: No intracranial hemorrhage is visualized. . The brain appearswithin normal limits. No volume loss is noted. The ventricles are normalin size. Midbrain and cerebellum appear normal. 7 mm calcifiedextra-axial mass is noted at the posterior vertex near the left falx thatlikely represents a stable small meningioma. No adjacent edema. Surrounding soft tissues appear normal. Limited views of the orbitsappear within normal limits. Calvarium is intact. No acute deformity. Mastoid air cells are patent.Paranasal sinuses are patent. IMPRESSION: No acute hemorrhage. Brain is normal for age. Electronic message regarding this finding was communicated to Dr. Raymond attime of signing. -------- FINAL REPORT -------- Dictated By: Raz Willis Dictated Date: 02/25/2024 11:36 ET Assigned Physician: Raz Willis Reviewed and Electronically Signed By: Raz Willis Signed Date: 02/25/2024 11:43 ET Workstation ID: [id number] Transcribed By: Self Edit Transcribed Date: 02/25/2024 11:36 ET Kwaku Perez DO IMG CT PROCEDURES Final Result * CT Angio Head/Neck Stroke wo and/or w Contrast (02/25/2024 11:29 AM EST) Anatomical Region Laterality Modality Head and Neck Computed Tomogra phy 02/25/2024 11:4 3 AM EST Impressions 02/25/2024 11:[address] angiogram of the head and neck appears normal. ??No thrombosis or significant stenosis identified. -------- FINAL REPORT -------- Dictated By: Raz Willis Dictated Date: 02/25/2024 11:43 ET Assigned Physician: Raz Willis Reviewed and Electronically Signed By: Raz Willis Signed Date: 02/25/2024 11:53 ET Workstation ID: [id number] Transcribed By: Self Edit Transcribed Date: 02/25/2024 11:43 ET Narrative 02/25/2024 11:[address] angiogram of the head and neck. HISTORY: Right-sided weakness. ??Stroke alert Comparison: CT brain same day. ??CT angiogram brain January 13 Technique: Contrast enhanced dynamic thin section volumetric imaging through the brain and neck following injection of 90 mL Isovue 370. Axial source images of the brain follow by sagittal and coronal reformations and three-dimensional angiographic reformations created on an independent workstation by undersigned radiologist. DOSE: CTDIvol: 32.8/39.5/52.2mGy. ??Total exam DLP: 2696.6mGy-cm FINDINGS: CT angiography of the brain: Intracranial vasculature appears patent. ??No thrombosis. ??No aneurysm or malformation. CT angiography of the neck: Carotid vessels appear normal without evidence of significant stenosis. ??Vertebral arteries are widely patent and appear normal. ??The aortic arch and great vessels appear normal. Limited views of the lung apices appear within normal limits. ??Soft tissues of the neck appear normal. ??No significant lymphadenopathy. ??The glands of the neck appear normal. ??Degenerative changes of the cervical spine. ??Stable appearance of the cystic focus in the anterior mediastinum is likely benign. Procedure Note Raz Willis MD - 02/25/2024 CT angiogram of the head and neck. HISTORY: Right-sided weakness. Stroke alert Comparison: CT brain same day. CT angiogram brain January 13 Technique: Contrast enhanced dynamic thin section volumetric imagingthrough the brain and neck following injection of 90 mL Isovue 370. Axialsource images of the brain follow by sagittal and coronal reformations andthree-dimensional angiographic reformations created on an independentworkstation by undersigned radiologist. DOSE: CTDIvol: 32.8/39.5/52.2mGy. Total exam DLP: 2696.6mGy-cm FINDINGS: CT angiography of the brain: Intracranial vasculature appears patent. No thrombosis. No aneurysm ormalformation. CT angiography of the neck: Carotid vessels appear normal without evidence of significant stenosis.Vertebral arteries are widely patent and appear normal. The aortic archand great vessels appear normal. Limited views of the lung apices appear within normal limits. Softtissues of the neck appear normal. No significant lymphadenopathy. Theglands of the neck appear normal. Degenerative changes of the cervicalspine. Stable appearance of the cystic focus in the anterior mediastinumis likely benign. IMPRESSION: CT angiogram of the head and neck appears normal. No thrombosis orsignificant stenosis identified. -------- FINAL REPORT -------- Dictated By: Raz Willis Dictated Date: 02/25/2024 11:43 ET Assigned Physician: Raz Willis Reviewed and Electronically Signed By: Raz Willis Signed Date: 02/25/2024 11:53 ET Workstation ID: [id number] Transcribed By: Self Edit Transcribed Date: 02/25/2024 11:43 ET Kwaku Perez DO IMG CT PROCEDURES Final Result * ECG-Outside (02/25/2024) us Provider Onbase MD ECG ORDERABLES Final Result * ECG-Annotated (02/25/2024) us Provider Onbase MD ECG ORDERABLES Final Result * SCREENING MAMMOGRAPHY BI 2-VIEW BREAST INC CAD (07/09/2023 4:13 PM EDT) Anatomical Region Laterality Modality Radiographic Miladys ging 04/25/2022 12:0 2 PM EST Narrative 07/10/2023 1:30 PM EDT This is a summary report. The complete report is available in the patient's medical record. If you cannot access the medical record, please contact the sending organization for a detailed fax or copy. Full field digital screening tomosynthesis mammography, reviewed with CAD and compared to previous. The breast tissue is heterogeneously dense, limiting sensitivity. No suspicious mass, architectural distortion or suspicious calcifications are identified. IMPRESSION: : Dense breast tissue, limiting the sensitivity of mammography. No mammographic evidence of malignancy. BIRADS 1-Negative; N. 5 year breast cancer risk assessment 0.8 % Lifetime breast cancer risk assessment 6.0 % Breast cancer risk category Low (<15%) Procedure Note Micah Lara MD - 11/09/2023 This is a summary report. The complete report is available in thepatient's medical record. If you cannot access the medical record, pleasecontact the sending organization for a detailed fax or copy. Full field digital screening tomosynthesis mammography, reviewed with CADand compared to previous. The breast tissue is heterogeneously dense,limiting sensitivity. No suspicious mass, architectural distortion orsuspicious calcifications are identified. IMPRESSION: : Dense breast tissue, limiting the sensitivity of mammography. Nomammographic evidence of malignancy. BIRADS 1-Negative; N. 5 year breast cancer risk assessment 0.8 % Lifetime breast cancer risk assessment 6.0 % Breast cancer risk category Low (<15%) Kevin Raymond MD IMG XR PROCEDURES Final Result from Last 3 Months or Most Recently Relevant to Health Maintenance Insurance [facility] PLAN Advance Directives * Full Code - Confirmed (Latest Code Status on File) Date Activated Date Inactivated Comments 02/25/2024 4:25 PM 02/26/2024 4:[address] atus was ascertained in the following way: Code status discussion: discussion with patient To update the patient's code status, place a code status order. Do not modify or discontinue any currently active code status orders. * Full Code - Default Date Activated Date Inactivated Comments 02/25/2024 2:30 PM 02/25/2024 4:25 PM This is orde r is used when code status has not been discussed with the patient, or code status is otherwise unknown/unconfirmed To update the patient's code status, place a code status order. Do not modify or discontinue any currently active code status orders. Care Teams Corporate Event Planner Relationship Specialty Start Date End Date Kevin Raymond MD [address] [place] [id number] PCP - General Internal Medicine 02/02/20
--- OUTSIDE RECORDS SUMMARY | 2024-05-24 19:50 | XMS_ITS | Encounter Summary ---
Author Organization [facility] [place] [address] Care Team Providers Care Technical Healthcare Consultant Name Role Phone Kevin Raymond MD Primary Care Provider [phone] Reason for Visit * Reason Onset Date Comments Medication Problem 04/07/2024 Encounter Details Date Type Department Care Team (Late st Contact Info) Description 04/07/2024 Telephone Adult Medicine [facility] [address] [place] [address] Sofy Jerez MA Medication Problem Social History Tobacco Use Types Packs/Day Years [...] as of this encounter Progress Notes * Carol Mcclure RN - 04/18/2024 2:25 PM EST Called [facility] and clarified that patient was on Zepbound 2.5mg 03/14/24, sent to [facility]. [facility] ran the script, there are out of stock but she will order and hopefully it will be in tomorrow * Ortiz Martin - 04/18/2024 12:38 PM EST Script clarification: has pt been on a lower strength of Zepbound? documented in this encounter Plan of Treatment Upcoming Encounters Date Type Department Care Team (Late st Contact Info) Description 06/08/2024 3:30 PM EDT Consult Nephrology - [place] [address] [place], [place] [phone] Lonnie Mondragon MD [address] [place] [address] 06/10/2024 4:40 PM EDT Office Visit Endocrinology - [place] [address] [place] [address] Radha Larson PA [address] [place], [place] documented as of this encounter Results * (ABNORMAL) Drug abuse screen expanded with reflex confirmation, urine (04/07/2024 11:25 AM EST) [facility] Amphetamine Screen, Ur Negative Negative LAB CHEMISTRY METHOD 5 7:32 PM [facility] Comment:Certain OTC medicati ons containing ephedrine, phenylephrine, pseudoephedrine and phenylpropanolamine can cause false positive results. Barbiturate Screen, Ur Negative Negative LAB CHEMISTRY METHOD 5 7:32 PM [facility] Benzodiazepine Screen, Ur Positive(A ) Negative LAB CHEMISTRY METHOD 5 7:32 PM [facility] Cocaine Screen, Ur Negative Negative LAB CHEMISTRY METHOD 5 7:32 PM [facility] Opiate Screen, Ur Negative Negative LAB CHEMISTRY METHOD 5 7:32 PM EST [facility] Cannabinoid (THC) Screen, Ur Positive(A ) Negative LAB CHEMISTRY METHOD 5 7:32 PM EST [facility] Comment:Specimens from patie nts taking pantoprazole sodium (Protonix) have been shown to produce false positive results. Fentanyl, Ur Negative Negative LAB CHEMISTRY METHOD 5 7:32 PM EST [facility] Oxycodone Screen, Ur Negative Negative LAB CHEMISTRY METHOD 5 7:32 PM EST [facility]) [facility] Urine Urine specimen obtained by clean catch procedure / Unknown Non-blood Collection / Unknown 04/07/2024 11:25 AM EST 04/07/2024 11:25 AM EST [facility] - 04/07/2024 7:32 PM EST Assay [...] MD LAB URINE ORDERABLES Final Resu lt [facility] [address] [place] [address], documented in this encounter Visit Diagnoses Diagnosis Encounter for long-term (current) use of high-risk medication- Primary Encounter for long-term (current) use of other medications documented in this encounter Care Teams Technical Healthcare Consultant Relationship Specialty Start Date End Date Kevin Raymond MD [address] [place] [id number] PCP - General Internal Medicine 02/02/20 documented as of this encounter
--- OUTSIDE RECORDS SUMMARY | 2024-05-24 19:50 | XMS_ITS | Encounter Summary ---
Author Organization [facility] Address [address] [place] [address] Care Team Providers Care Script Girl Name Role Phone Kevin Raymond MD Primary Care Provider [phone] Reason for Visit * Reason Onset Date Comments Prior Authorization 05/16/2024 Carisoprodol 350mg Encounter Details Date Type Department Care Team (Late st Contact Info) Description 05/16/2024 Telephone Adult Medicine [address] [phone] Ester Randhawa MA Prior Authorization (Carisoprodol 350mg) Social History Tobacco Use Types Packs/Day Years [...] as of this encounter Progress Notes * Ester Randhawa MA - 05/16/2024 9:31 PM EST Prior Authorization for Medication-do not complete and send this encounter unless you have the fax from the pharmacy. Is this a Cover My Meds request: Yes -- Ray Code [id number] Name of Medication Carisoprodol Dose of Medication 350MG What is the RX # from the faxed refill? How does patient take this med? Take 1 tablet (350 mg total) by mouth 4 (four) times a day What Pharmacy did the fax come from: [facility] [address] fax #: [phone] [employer] Information from fax: What Prescription Plan does the patient have? [employer] BIN/PCN if applicable: Cardholder ID: Person Code: Relationship Code: Help desk phone: documented in this encounter Plan of Treatment Upcoming Encounters Date Type Department Care Team (Late st Contact Info) Description 06/08/2024 3:30 PM EDT Consult Nephrology - [address] [phone] Lonnie Mondragon MD [address] [facility] [address] [place] [id number] 06/10/2024 4:40 PM EDT Office Visit Endocrinology - [address] [phone] Radha Larson PA [address] [place] [address] documented as of this encounter Visit Diagnoses Not on filedocumented in this encounter Care Teams Script Girl Relationship Specialty Start Date End Date Kevin Raymond MD [address] [place] [address] PCP - General Internal Medicine 02/02/20 documented as of this encounter
== END 2024-05-24 16:37 | disposition home or self-care (01) ==
PROVIDERS: PCP Internal Medicine; Visit Provider Internal Medicine Nephrology
DX: N20.0 Calculus of kidney (principal)
CPT/HCPCS: 99214

== ENCOUNTER → 2024-05-24 15:51 | Outpatient (BNVA) | payer OTHER, SELFPAY | PROVIDERS: PCP Internal Medicine; Visit Provider Internal Medicine Nephrology | DX: N20.0 Calculus of kidney (principal) | CPT/HCPCS: 99212 ==